=== PATIENT | male | born 1945 | race American Indian/Alaskan Native ===

== ENCOUNTER 2020-10-26 08:17 | Day surgery (SDC) | payer MEDICARE ==
[2020-10-24 10:44] LABS: Hematocrit 38.6 % (35.5-45.6); Mean Corpuscular HGB Conc 34 % (32-34); Mean Corpuscular Volume 90 fl (84-94); Platelet Count 209 K/mm3 (140-440); Red Blood Count 4.28 M/mm3 (3.65-5.03); Red Cell Distribution Width 14.2 % (13.2-15.2)
[2020-10-24 11:55] LABS: Alanine Aminotransferase 8 units/L (7-56); Blood Urea Nitrogen 25 mg/dL (9-20); Calcium 10.4 mg/dL (8.4-10.2); Hemolysis Index 6
[2020-10-24 11:56] LABS: BUN/Creatinine Ratio 36
[~2020-10-26 08:17] MED LIST: ACETAMINOPHEN 500 MG TAB PO SCH; LACTATED RINGERS 1,000 ML IV SCH
--- NOTE | 2020-10-26 09:24 | Anesthesia Consultation ---
Anesthesia Consult and Med Hx Date of service: 10/26/20 - Airway Anesthetic Teeth Evaluation: Partials ROM Head & Neck: Adequate Mental/Hyoid Distance: Adequate Mallampati Class: Class II Intubation Access Assessment: Probably Good - Cardiac Exam Cardiac Exam: RRR - Pre-Operative Health Status ASA Pre-Surgery Classification: ASA3 Proposed Anesthetic Plan: General - Pulmonary Hx Smoking: No Hx Respiratory Symptoms: No Hx Sleep Apnea: No (HARLEY PRE SCREEN LOW RISK) - Cardiovascular System Hx Hypertension: No Hx Heart Attack/AMI: No Hx Percutaneous Transluminal Coronary Angioplasty (PTCA): No Hx Cardia Arrhythmia: Yes (took atenolol this morning) Hx Pacemaker: No Hx Internal Defibrillator: No - Central Nervous System CVA: No - Endocrine Hx Renal Disease: No Hx Liver Disease: No Hx Non-Insulin Dependent Diabetes: Yes Hx Thyroid Disease: No - Other Systems Hx Cancer: Yes (hx prostate ca s/p prostatectomy) - Additional Comments Anesthesia Medical History Comments: No hx anesthetic complications. Preop medical eval on chart.
[2020-10-26] MEDS ORDERED: HYDROcodone/ACETAMINOPHEN 5-325 MG TAB PO PRN (09:25)
[2020-10-26] MEDS ORDERED: ONDANSETRON 4 MG/2 ML INJ IV PRN (09:25)
[2020-10-26] MEDS ORDERED: HYDROmorphone 1 MG/1 ML INJ IV PRN (09:25)
--- NOTE | 2020-10-26 09:25 | Anesthesia Day of Surgery ---
Anesthesia Day of Surgery - Day of Surgery Patient Examined: Yes Patient H&P Reviewed: Yes Patient is NPO: Yes Beta Blockers: Yes (atenolol today AM)
[2020-10-26] MEDS ORDERED: GLYCOPYRROLATE 0.4 MG/2 ML INJ ONE (10:30)
[2020-10-26] MEDS ORDERED: ONDANSETRON 4 MG/2 ML INJ ONE (10:30)
[2020-10-26] MEDS ORDERED: dexAMETHasone 20 MG/5 ML VIAL ONE (10:30)
[2020-10-26] MEDS ORDERED: NEOSTIGMINE 10MG/10 ML INJ MDV ONE (10:30)
[2020-10-26] MEDS ORDERED: ceFAZolin/STERILE WATER 2 GM/20 ML SYRINGE IV NR (10:30)
[2020-10-26] MEDS ORDERED: propofoL 200 MG/20 ML VIAL IV ONE (10:31)
[2020-10-26] MEDS ORDERED: ROCURONIUM 50 MG/5 ML INJ IV ONE (10:31)
[2020-10-26] MEDS ORDERED: LIDOCAINE MPF (2%) 20 MG/1 ML VIAL 5 ML ONE (10:31)
[2020-10-26] MEDS ORDERED: fentaNYL 100 MCG/2 ML INJ ONE (10:31)
[2020-10-26] MEDS ORDERED: ceFAZolin/Water 2 GM/20 ML 2 GM/20 ML SYRINGE IV ONE (10:36)
[2020-10-26] MEDS ORDERED: ePHEDrine SULFATE 50 MG/1 ML INJ ONE (10:37)
[2020-10-26] MEDS ORDERED: BUPIVACAINE/PF (0.25%) 2.5 MG/ML 30 ML VIAL INFILTRATI ONE ×2 (11:23→11:31)
[2020-10-26] MEDS ORDERED: SODIUM CHLORIDE 0.9% IRR 1,500 ML BOTTLE IR ONE (11:32)
--- NOTE | 2020-10-26 12:15 | Short Stay Summary ---
Short Stay Documentation Date of service: 10/26/20 - History H&P: obtained from office - Allergies and Medications Current Medications: Allergies No Known Allergies Allergy (Verified 04/09/17 13:45) Home Medications Medication Instructions Recorded Confirmed Last Taken Type Metformin HCl 1,000 mg PO BID 01/25/16 10/26/20 10/25/20 17:00 History Simvastatin 40 mg PO DAILY 01/25/16 10/26/20 10/24/20 09:00 History atenoloL [Atenolol] 25 mg PO DAILY 01/25/16 10/26/20 10/26/20 05:00 History Aspirin [Lo-Dose Aspirin EC] 81 mg PO DAILY 04/09/17 10/26/20 10/19/20 09:00 History Naproxen [Naprosyn] 375 mg PO DAILY 10/19/20 10/26/20 10/25/20 09:00 History Active Medications Acetaminophen (Acetaminophen 500 Mg Tab) 1,000 mg PO PREOP SONA Stop: 10/26/20 20:00 Last Admin: 10/26/20 09:45 Dose: 1,000 mg Documented by: Cefazolin Sodium (Cefazolin/Sterile Water 2 Gm/20 Ml Syringe) 2 gm IV PREOP NR Hydromorphone HCl (Hydromorphone 1 Mg/1 Ml Inj) 0.5 mg IV Q10MIN PRN PRN Reason: Pain , Severe (7-10) Stop: 10/26/20 23:00 Lactated Ringer's (Lactated Ringers) 1,000 mls @ 100 mls/hr IV DIRECT SONA Stop: 10/26/20 23:59 Last Admin: 10/26/20 10:05 Dose: 100 mls/hr Documented by: - Brief post op/procedure progress note Date of procedure: 10/26/20 Pre-op diagnosis: rt hernia Post-op diagnosis: same Procedure: hernia repair Anesthesia: BUDDY COHEN Surgeon: NAOMI LOPEZ Estimated blood loss: minimal Pathology: list (sac & lipoma) Specimen disposition: to lab Condition: stable - Hospital course Hospital course: elias on chart - Disposition Condition at discharge: Stable Disposition: DC-01 TO HOME OR SELFCARE Short Stay Discharge Plan Follow up with: MARCUS LEAL MD [Primary Care Provider] - 7 Days
[2020-10-26 14:06] VITALS: BP 136/65
--- NOTE | 2020-10-26 14:26 | Post Anesthesia Evaluation ---
- Post Anesthesia Evaluation Patient Participated: Yes Airway Patent: Yes Stable Respiratory Function: Yes Nausea/Vomiting: No Temp > 96.8F: Yes Pain Manageable: Yes Adequeate Hydration: Yes Anesthesia Complications: No
--- NOTE | 2020-10-26 22:31 | Operative Report ---
DATE OF SURGERY: 10/26/2020 PREOPERATIVE DIAGNOSIS: Right reducible inguinal hernia. POSTOPERATIVE DIAGNOSIS: Right reducible inguinal hernia. PROCEDURE: Open hernia repair with mesh. SURGEON: Blu Norwood MD ANESTHESIA: General. ESTIMATED BLOOD LOSS: Minimal. FLUIDS: Crystalloid. COMPLICATIONS: No complications. INDICATIONS: This patient is a 75-year-old gentleman with a history of prostate cancer, status post robotic prostatectomy in the remote past. He showed no signs of recurrence of cancer. He was seen in the office over the last year, has a gradually worsening bulge on the right side. The exam was consistent with a hernia, now a golf ball size. Discussed options including robotic, laparoscopic and open procedure. He agreed to proceed with open hernia repair. Risks, benefits, and complications were explained to the patient and his . DESCRIPTION OF PROCEDURE: The patient was taken to the operative suite, placed in the supine position. After adequate general anesthesia, right inguinal incision was made with the Bovie. Sharp dissection was taken down to the external oblique fascia. Weitlaner retractor was used for exposure. Spermatic cord was isolated with a [place]. The ilioinguinal nerve could be appreciated and was uninjured. Conjoint tendon and Poupart's ligament were isolated, spermatic cord was dissected free. Obvious sac could be appreciated and lipoma. Lipoma was clamped, transected and a 2-0 silk tie to control the stump. The hernia sac was opened and no bowel was noted on the inside. It was bunched together, tied with 0 silk in an interrupted fashion and the sac was excised and sent for routine pathologic evaluation. Keyhole mesh was attached to the shelving edge of Poupart's ligament and conjoint tendon using 2-0 Ethibond in an interrupted fashion. Copious irrigation was performed. Adequate hemostasis was achieved. External oblique fascia was closed over it using 2-0 Vicryl in a running fashion. Lennox's layer was closed with 2-0 Vicryl in a running fashion. Skin was closed with 3-0 Monocryl in a subcuticular fashion. Steri-Strips and Dermabond was placed as well as island drape. The patient tolerated the procedure well and was extubated and taken to recovery room. TID: [id number] RECEIPT: [id number] [facility]
== END 2020-10-26 14:50 | disposition home or self-care (01) ==
LOC: OR 08:17
PROVIDERS: ATTEND Urology
DX: K40.90 Unilateral inguinal hernia, without obstruction or gangrene, not specified as recurrent (principal); N39.46 Mixed incontinence; E11.9 Type 2 diabetes mellitus without complications; E78.00 Pure hypercholesterolemia, unspecified; I10 Essential (primary) hypertension; N40.0 Benign prostatic hyperplasia without lower urinary tract symptoms; Z79.899 Other long term (current) drug therapy; Z98.890 Other specified postprocedural states; Z85.46 Personal history of malignant neoplasm of prostate
CPT/HCPCS: 36415; 49505; 80053; 82962; 85027; 88302; 88304; C1781; J0690; J1100; J1170; J2405; J2704; J2710; J3010; J7120